=== PATIENT | male | born 1945 | race Caucasian/White ===

== ENCOUNTER 2017-02-10 11:05 | Emergency (ER) | payer OTHER ==
--- NOTE | 2017-02-10 12:58 | DIAGNOSTIC IMAGING REPORT ---
PROCEDURE: US VENOUS - LEFT EXT INDICATION: SWELLING TECHNIQUE: Duplex sonography of the deep venous system in the left lower extremity was performed. Compression and augmentation techniques were used. COMPARISON: None. FINDINGS: Each interrogated segment of deep vein from the common femoral vein into the calf veins demonstrates normal compressibility, augmentation and/or color Doppler flow without filling defect. No evidence of significant soft-tissue edema, soft-tissue mass or cyst. IMPRESSION: 1. No deep venous thrombosis in the left lower extremity.
--- NOTE | 2017-02-10 13:43 | ED CLINICAL REPORT ---
Clinical Report - Physicians/Mid Levels [facility] [address] [place] [address] 02/10/2017 11:06 Patient: XIOMARA MENJIVAR Time Seen: 11:23. Arrived- By private vehicle. Historian- patient. HISTORY OF PRESENT ILLNESS Chief Complaint: LOWER EXTREMITY SWELLING. Severity is described as being moderate. It has become recently worse. The quality is noted to be aching and "pain". This started yesterday and is still present and now worse. It was gradual in onset and has been constant. Symptoms located in the area of the left leg. The patient has had redness and swelling. Patient denies an injury. Similar symptoms previously: None. REVIEW OF SYSTEMS No chills, fever, sweats, cough or difficulty breathing. No palpitations, abdominal pain, constipation, diarrhea or nausea. No vomiting or urinary problems. All systems otherwise negative, except as recorded above. PAST HISTORY ( PCP - KIMBERLY CROCKER). Problems: Diabetes Mellitus. Hypertension. Hypercholesterolemia. Coronary Artery Disease. Additional Surgeries: Angioplasty of blood vessel. Medications: Insulin Regular Human Injection, before meals Taken on sliding scale. Lantus Subcutaneous 50 units q PM, at bedtime. Lisinopril Oral 10 mg, daily. Metformin HCl Oral 1000 mg, 2x a day. Metoprolol 50 MG XL, daily. Pravastatin Sodium Oral 80 mg, at bedtime. Tamsulosin HCl Oral 0.4 mg, at bedtime. Allergies: NKDA. SOCIAL HISTORY Never smoker. No alcohol use or drug use. ADDITIONAL NOTES The nursing notes have been reviewed. PHYSICAL EXAM Vital Signs: 02/10/2017 11:25 BP: 132/69. HR: 75. RR: 20. O2 saturation: 97%. Temp: 98 F. Pain level now: 7/10. Have been reviewed. Appearance: Alert. Eyes: Pupils equal, round and reactive to light. ENT: Pharynx normal. Neck: Normal inspection. Neck supple. CVS: Normal heart rate and rhythm. Heart sounds normal. Respiratory: No respiratory distress. Breath sounds normal. Abdomen: Soft and nontender. No organomegaly. Skin: Skin warm and dry. Normal skin color. Normal skin turgor. Extremities: Swelling, warmth, tenderness and erythema present in the left leg, left ankle and left foot. Mild left-sided calf tenderness. LABS, X-RAYS, AND EKG Lower Extremity Sonography: Negative study. Laboratory Tests: CBC w Diff: (JOSE: 02/10/2017 11:58) ( [facility] 02/10/2017 12:12) Final results Test Result Flag Units (Reference) WHITE BLOOD COUNT 14.2 H K/uL (4.5-11.5) RED BLOOD COUNT 4.46 L M/uL (4.50-5.90) HEMOGLOBIN 12.6 L gm/dL (13.5-17.5) HEMATOCRIT 38.3 L % (41.0-53.0) MEAN CELL VOLUME 86 fL (80-100) MEAN CORPUSCULAR HGB 28 pg (26-34) MEAN CORPUSCULAR HGB CONC 33 g/dL (31-37) RED CELL DISTRIBUTION WIDTH 13.8 % (11.6-14.8) PLATELET COUNT 376 K/uL (150-400) NEUTROPHIL % 76.9 H % (50-75) LYMPH % 12.1 L % (25-40) MONO % 9.3 % (3-14) EOSINOPHIL % 1.4 % (0-4) BASOPHIL % 0.3 % (0-2) PT with INR: (JOSE: 02/10/2017 11:58) ( [facility] [place] 02/10/2017 12:23) Final results Test Result Flag Units (Reference) INR 1.0 (0.8-1.2) Low Intensity Therapy: INR 1.5-2.0 PT range 18.5-23.1Mod.Intensity Therapy: INR 2.0-3.0 PT range 23.1-31.5High Intensity Therapy: INR 2.5-3.5 PT range 27.4-35.5High Intensity Therapy 2: INR 3.0-4.0 PT range 31.5-39.3 APTT 34 SECONDS (24-34) D-DIMER QUANTITATIVE < 0.27 L ug/mLFEU (0.27-0.52) The primary value of this quantitative assay relates toits negative predictive value (i.e. exclusion) of pulmonaryembolism/deep vein thrombosis/DIC.Elevated levels of d-dimer may also occur with:, age, cancer, inflammation, liver disease,post-op, infection, hematoma, coronary disease, peripheralarteriopathy, bleeding disorders and thrombolytic treatment.Results should be correlated with other clinical andradiological data.Testing Methodology: Latex Immunoassay CMP: (JOSE: 02/10/2017 11:58) ( MsgRcvd 02/10/2017 13:02) Final results Test Result Flag Units (Reference) GLUCOSE 74 mg/dL (70-110) BUN 32 H mg/dL (7-18) CREATININE 1.6 H mg/dL (0.6-1.3) Estimated GFR 45.26 mL/min Estimated GFR- 54.85 mL/min Note: Persistent reduction over 3 months in eGFR<60 mL/min/1.73 m2 defines CKD. Patients with eGFR values>=60 mL/min/1.73 m2 may also have CKD if evidence ofpersistent proteinuria. Additional information may be foundat www.kidney.org. SODIUM 140 mmol/L (136-145) POTASSIUM 4.3 mmol/L (3.5-5.1) CHLORIDE 102 mmol/L (98-107) CARBON DIOXIDE 30 mmol/L (21-32) CALCIUM 8.8 mg/dL (8.5-10.1) TOTAL PROTEIN 7.6 g/dL (6.4-8.2) ALBUMIN 3.2 L g/dL (3.3-5.0) BILIRUBIN, TOTAL 0.5 mg/dL (0.0-1.0) ALKALINE PHOSPHATASE 96 U/L (46-116) AST (SGOT) 18 U/L (15-37) ALT (SGPT) 25 U/L (12-78) . PROGRESS AND PROCEDURES Course of Care: Patient is stable. Patient/family counseled. Old medical records reviewed. Disposition: Discharged. Condition: stable. CLINICAL IMPRESSION Cellulitis of the left lower leg. INSTRUCTIONS Elevate affected areas above chest level. Warnings: Further evaluation is necessary. GENERAL WARNINGS: Return or contact your physician immediately if your condition worsens or changes unexpectedly, if not improving as expected, or if other problems arise. Your Current Medications: CONTINUE TAKING THE FOLLOWING MEDICATIONS: Insulin Regular Human Injection : before meals, Sliding scale. Lantus Subcutaneous : 50 units q PM at bedtime. Lisinopril Oral : 10 mg daily. Metformin HCl Oral : 1000 mg 2x a day. Metoprolol* : 50 MG XL daily. Pravastatin Sodium Oral : 80 mg at bedtime. Tamsulosin HCl Oral : 0.4 mg at bedtime. Prescription Medications: Trimethoprim-Sulfamethoxazole DS: take 2 tablets orally every 12 hours for 10 days. No refill. Ultram 50 mg: take 1-2 orally every 6 hours as needed for pain. Dispense fifteen (15). No refills. Substitution is permissible. Follow-up: Follow up with your doctor KIMBERLY CROCKER Monday in three days. Call for an appointment. Understanding of the discharge instructions verbalized by patient and family. (Electronically signed by Thiago Nog MD 02/11/2017 9:44)
--- NOTE | 2017-02-10 13:43 | ED ORDER SUMMARY ---
..... Patient: XIOMARA MENJIVAR OrderSheet [facility] VisitID: [id number] [place] [address] 72y, M Registration Date/Time: 02/10/2017 ORDER SHEET Weight: 120.2 kg (stated) Allergies: NKDA GENERAL ORDERS: US Venous Left (LLE - R/O DVT) Urgent (11:47 02/10/2017 JSimbeck R.N. verbal order read back to Norberto WISDOM) (Ack 11:49 Keely) (13:15 KKnebel R.N.) CBC w Diff Urgent (11:48 02/10/2017 JSimbeck R.N. verbal order read back to Norberto WISDOM) (Ack 11:49 Keely) (12:11 KKnebel R.N.) CMP Urgent (11:48 02/10/2017 JSimbeck R.N. verbal order read back to Norberto WISDOM) (Ack 11:49 Keely) (12:11 KKnebel R.N.) PT with INR Urgent (11:48 02/10/2017 JSimbeck R.N. verbal order read back to Norberto WISDOM) (Ack 11:49 Keely) (12:11 KKnebel R.N.) D-Dimer Urgent (11:48 02/10/2017 JSimbeck R.N. verbal order read back to Norberto WISDOM) (Ack 11:49 Keely) (12:11 KKnebel R.N.) PTT Urgent (11:48 02/10/2017 JSimbeck R.N. verbal order read back to Norberto WISDOM) (Ack 11:49 Keely) (12:11 KKnebel R.N.) Blood Culture (No) (N/A) Urgent (12:55 02/10/2017 Norberto WISDOM) (Ack 12:59 Keely) (13:15 KKnebel R.N.) Lactate, Serum Urgent (12:55 02/10/2017 Norberto WISDOM) (Ack 12:59 Keely) (13:15 KKnebel R.N.) MEDICATION ORDERS: IV FLUIDS: IV Saline Lock (12:03 02/10/2017 Norberto WISDOM) (12:11 Leesa Strauss) ORDER SHEET NOTES: [Electronically signed by Judy Wetzel R.N. (15:53 02/10/2017)] [Electronically signed by Thiago Ngo MD (09:44 02/11/2017)] [Electronically locked/signed by Judy Wetzel R.N. (15:53 02/10/2017)]
--- NOTE | 2017-02-10 13:43 | ED ORDER SUMMARY ---
..... Patient: XIOMARA MENJIVAR OrderSheet [facility] VisitID: [id number] [place] [address] 72y, M Registration Date/Time: 02/10/2017 ORDER SHEET Weight: 120.2 kg (stated) Allergies: NKDA GENERAL ORDERS: US Venous Left (LLE - R/O DVT) Urgent (11:47 02/10/2017 JSimbeck R.N. verbal order read back to Norberto WISDOM) (Ack 11:49 Keely) (13:15 KKnebel R.N.) CBC w Diff Urgent (11:48 02/10/2017 JSimbeck R.N. verbal order read back to Norberto WISDOM) (Ack 11:49 Keely) (12:11 KKnebel R.N.) CMP Urgent (11:48 02/10/2017 JSimbeck R.N. verbal order read back to Norberto WISDOM) (Ack 11:49 Keely) (12:11 KKnebel R.N.) PT with INR Urgent (11:48 02/10/2017 JSimbeck R.N. verbal order read back to Norberto WISDOM) (Ack 11:49 Keely) (12:11 KKnebel R.N.) D-Dimer Urgent (11:48 02/10/2017 JSimbeck R.N. verbal order read back to Norberto WISDOM) (Ack 11:49 Keely) (12:11 KKnebel R.N.) PTT Urgent (11:48 02/10/2017 JSimbeck R.N. verbal order read back to Norberto WISDOM) (Ack 11:49 Keely) (12:11 KKnebel R.N.) Blood Culture (No) (N/A) Urgent (12:55 02/10/2017 Norberto WISDOM) (Ack 12:59 Keely) (13:15 KKnebel R.N.) Lactate, Serum Urgent (12:55 02/10/2017 Norberto WISDOM) (Ack 12:59 Keely) (13:15 KKnebel R.N.) MEDICATION ORDERS: IV FLUIDS: IV Saline Lock (12:03 02/10/2017 Norberto WISDOM) (12:11 Leesa Strauss) ORDER SHEET NOTES: [Electronically signed by Judy Wetzel R.N. (15:53 02/10/2017)] [Electronically signed by Thiago Ngo MD (09:44 02/11/2017)] [Electronically locked/signed by Judy Wetzel R.N. (15:53 02/10/2017)]
--- NOTE | 2017-02-10 13:43 | ED NURSING NOTES ---
Clinical Report - Nurses [facility] [address] [place] [address] 02/10/2017 11:06 Patient: XIOMARA MENJIVAR TRIAGE Triage time 11:10 Feb 10 2017. Acuity: LEVEL 3. Chief Complaint: LEFT LOWER EXTREMITY PAIN and SWELLING. Alert. No acute distress. RENZO COMA SCORE: Renzo Coma Scale: 15- eyes open spontaneously (4); best verbal response- oriented x 4 (5); best motor response- obeys commands (6). --11:31 Judy Wetzel R.N. 11:25 02/10/17. BP: 132/69. HR: 75. RR: 20. O2 saturation: 97%. Temp: 98 F. Pain level now: 02/06. --11:31 Judy Wetzel R.N. Weight: 120.2 kg stated. Height/Length: 68 inches Per Patient. BMI: 40.3. --11:30 Judy Wetzel R.N. Medications Insulin Regular Human Injection, before meals Taken on sliding scale. Lantus Subcutaneous 50 units q PM, at bedtime. Lisinopril Oral 10 mg, daily. Metformin HCl Oral 1000 mg, 2x a day. Metoprolol 50 MG XL, daily. Pravastatin Sodium Oral 80 mg, at bedtime. Tamsulosin HCl Oral 0.4 mg, at bedtime. --11:27 Judy Wetzel R.N. Allergies NKDA. --11:27 Judy Wetzel R.N. History Arrived by private vehicle. Historian: patient. Accompanied by family. This occurred yesterday. It is described as radiating to the left lower extremity and thigh. He has had redness and trouble walking. PAST MEDICAL HX: Tetanus status: up-to-date. Immunizations: up-to-date. SOCIAL HX: Never smoker. No alcohol use or drug use. No infectious disease exposure. SELF HARM ASSESSMENT: A self harm assessment was performed. The patient answered "no" to the question "Do you have thoughts of harming or killing yourself?" and "Have you recently had thoughts about harming or killing others?". FALL RISK ASSESSMENT: Fall risk assessment completed. No fall risk identified. NUTRITIONAL RISK ASSESSMENT: The nutritional risk assessment revealed no deficiencies. FUNCTIONAL ASSESSMENT: Functional assessment: no impairments noted. LEARNING NEEDS ASSESSMENT: The learning needs assessment revealed no barriers. ABUSE ASSESSMENT: Abuse assessment: The patient was asked "Do you feel safe in your home?". SKIN INTEGRITY ASSESSMENT: Skin integrity risk assessment completed. No skin integrity risk identified. --11:31 Judy Wetzel R.N. PROBLEMS: Hypertension. Hypercholesterolemia. Diabetes Mellitus. Coronary Artery Disease. --11:30 Judy Wetzel R.N. ADDITIONAL SURGERIES: Angioplasty of blood vessel. --11:30 Judy Wetzel R.N. Interventions ID band on patient. To room. --11:31 Judy Wetzel R.N. PHYSICAL ASSESSMENT Ambulatory to room. GENERAL / NEURO / PSYCH: Oriented X 4. Alert. Appears in no acute distress. EXTREMITIES: Calf tenderness. Non-pitting edema of the left lower extremity involving the foot, ankle and lower leg. Extremity pulses are within normal limits. Left leg: tenderness, swelling and erythema. SKIN: Skin intact. Skin is warm and dry. --11:32 Judy Wetzel R.N. NURSING PROGRESS NOTES Pulse oximeter and NIBP monitor placed on patient; monitor alarms on. Patient gowned. Patient identifiers checked. Call light placed in reach. Side rails up x 1. Bed placed in lowest position. Brakes of bed on. --11:33 Judy Wetzel R.N. 12:11 02/10/2017 Site #1 started via IV in the right antecubital space with an 20g angiocath, with aseptic technique and good blood return; one attempt. Saline lock flushed with 10 mL saline. --12:11 Judy Wetzel R.N. The patient is calm and resting quietly. Overall patient status is the same- he states feels better. GENERAL / NEURO / PSYCH: The patient reports pain is still present but improving (no pain while laying in bed.). Alert. Oriented X 4. RESPIRATORY: No respiratory distress. SKIN: Skin is warm and dry. --13:43 Judy Wetzel R.N. 13:39 02/10/17. BP: 110/56. HR: 73. RR: 20. O2 saturation: 99%. Pain level now: 0/10. --13:43 Judy Wetzel R.N. DISPOSITION / DISCHARGE 14:02 02/10/2017 Site #1 removed upon discharge. --14:02 Judy Wetzel R.N. Departure time: 14:Feb 10 2017. Condition at departure: improved. No learning barriers present. Discharge instructions provided and reviewed with the patient. Reviewed medication(s) side effects, precautions, dosing and course information. Prescription(s) given to the patient. Reviewed referral to a primary care physician for followup. Patient verbalized understanding. Written instructions provided in Persian. The patient was discharged home and accompanied by spouse. He left the Emergency Department ambulatory and via private vehicle. Spouse driving. FALL RISK ASSESSMENT: Fall risk assessment completed. No fall risk identified. --14:02 Judy Wetzel R.N. 13:39 02/10/17. BP: 110/56. HR: 73. RR: 20. O2 saturation: 99%. Pain level now: 0/10. --14:02 Judy Wetzel R.N. Locked/Released at 02/10/2017 15:53 by Judy Wetzel R.N.
--- NOTE | 2017-02-11 09:44 | ED MED RECONCILIATION SUMMARY ---
Patient: XIOMARA MENJIVAR Medication Reconciliation Report [facility] VisitID: [id number] [address] [place] [address] 72y, M Registration Date/Time: 02/10/2017 Weight: 120.2 kg Height/Length: 68 in. BMI: 40.3 ALLERGIES: NKDA The patient's Home Medications are listed below: CONTINUE TAKING THE FOLLOWING MEDICATIONS: Insulin Regular Human Injection, before meals Lantus Subcutaneous 50 units q PM, at bedtime Lisinopril Oral 10 mg, daily Metformin HCl Oral 1000 mg, 2x a day Metoprolol 50 MG XL, daily Pravastatin Sodium Oral 80 mg, at bedtime Tamsulosin HCl Oral 0.4 mg, at bedtime The source(s) of the original Home Medication information: Not obtained. The following Medications were given to the patient in the Emergency Department: None. The following Medications were prescribed to the patient: Trimethoprim-Sulfamethoxazole DS: take 2 tablets orally every 12 hours for 10 days. No refill. -- Thiago Ngo MD Ultram 50 mg: take 1-2 orally every 6 hours as needed for pain. Dispense fifteen (15). No refills. Substitution is permissible. -- Thiago Ngo MD
--- NOTE | 2017-02-11 09:44 | ED DISCHARGE INSTRUCTIONS ---
Patient: XIOMARA MENJIVAR General Instructions [facility] VisitID: [id number] [place] [address] 72y, M Registration Date/Time: 02/10/2017 Cellulitis of the left lower leg. INSTRUCTIONS Elevate affected areas above chest level. Warnings: Further evaluation is necessary. GENERAL WARNINGS: Return or contact your physician immediately if your condition worsens or changes unexpectedly, if not improving as expected, or if other problems arise. Your Current Medications: CONTINUE TAKING THE FOLLOWING MEDICATIONS: Insulin Regular Human Injection : before meals, Sliding scale. Lantus Subcutaneous : 50 units q PM at bedtime. Lisinopril Oral : 10 mg daily. Metformin HCl Oral : 1000 mg 2x a day. Metoprolol* : 50 MG XL daily. Pravastatin Sodium Oral : 80 mg at bedtime. Tamsulosin HCl Oral : 0.4 mg at bedtime. Prescription Medications: Trimethoprim-Sulfamethoxazole DS: take 2 tablets orally every 12 hours for 10 days. No refill. Ultram 50 mg: take 1-2 orally every 6 hours as needed for pain. Dispense fifteen (15). No refills. Substitution is permissible. Follow-up: Follow up with your doctor KIMBERLY CROCKER Monday in three days. Call for an appointment. Understanding of the discharge instructions verbalized by patient and family. ADDITIONAL INFORMATION Cellulitis You have an infection of the skin known as cellulitis. This usually starts with a scrape, cut, insect bite, blister or other opening in the skin which becomes infected. This is a serious condition. It must be watched closely to be sure the infection is not spreading. With antibiotic treatment, the size of the red area will gradually shrink in size until the skin returns to normal. This will take 7-10 days. The red area should never increase in size once the antibiotic medicine has been started. Occasionally, an infection will be resistant to one antibiotic and another one will have to be used. Home Care: 1) Limit the use of the affected part, since excess movement can cause the infection to spread. 2) If the infection is on your leg, walk as little as possible during the first few days of the treatment. Keep your leg elevated while sitting. This will reduce swelling. 3) Take all of the antibiotic medicine exactly as directed until it is gone. Be careful not to miss any doses, especially during the first seven days. Follow Up with your doctor or this facility as directed. Check the infected area daily for the warning signs listed below. Get Prompt Medical Attention if any of the following occur: -- Spreading area of redness -- Increasing swelling or pain -- Appearance of pus or drainage -- Fever over 100.4 F (38.0 C) oral, or over 101.4 F (38.6 C) rectal, after two days on antibiotics Sulfamethoxazole, Trimethoprim Oral tablet What is this medicine? SULFAMETHOXAZOLE; TRIMETHOPRIM or SMX-TMP (suhl fuh meth OK arnulfo zohl; trye METH oh prim) is a combination of a sulfonamide antibiotic and a second antibiotic, trimethoprim. It is used to treat or prevent certain kinds of bacterial infections. It will not work for colds, flu, or other viral infections. How should I use this medicine? Take this medicine by mouth with a full glass of water. Follow the directions on the prescription label. Take your medicine at regular intervals. Do not take it more often than directed. Do not skip doses or stop your medicine early. Talk to your american sign language interpreter regarding the use of this medicine in children. Special care may be needed. This medicine has been used in children as young as 2 months of age. What side effects may I notice from receiving this medicine? Side effects that you should report to your doctor or health residential care facility manager as soon as possible: allergic reactions like skin rash or hives, swelling of the face, lips, or tongue breathing problems fever or chills, sore throat irregular heartbeat, chest pain joint or muscle pain pain or difficulty passing urine red pinpoint spots on skin redness, blistering, peeling or loosening of the skin, including inside the mouth unusual bleeding or bruising unusually weak or tired yellowing of the eyes or skin Side effects that usually do not require medical attention (report to your doctor or health residential care facility manager if they continue or are bothersome): diarrhea dizziness headache loss of appetite nausea, vomiting nervousness What may interact with this medicine? Do not take this medicine with any of the following medications: aminobenzoate potassium dofetilide metronidazole This medicine may also interact with the following medications: JEANINE inhibitors like benazepril, enalapril, lisinopril, and ramipril cyclosporine digoxin diuretics indomethacin medicines for diabetes methenamine methotrexate phenytoin potassium supplements pyrimethamine sulfinpyrazone tricyclic antidepressants warfarin What if I miss a dose? If you miss a dose, take it as soon as you can. If it is almost time for your next dose, take only that dose. Do not take double or extra doses. Where should I keep my medicine? Keep out of the reach of children. Store at room temperature between 20 to 25 degrees C (68 to 77 degrees F). Protect from light. Throw away any unused medicine after the expiration date. What should I tell my health care provider before I take this medicine? They need to know if you have any of these conditions: anemia asthma being treated with anticonvulsants if you frequently drink alcohol containing drinks kidney disease liver disease low level of folic acid or [id number] dehydrogenase poor nutrition or malabsorption porphyria severe allergies thyroid disorder an unusual or allergic reaction to sulfamethoxazole, trimethoprim, sulfa drugs, other medicines, foods, dyes, or preservatives or trying to get breast-feeding What should I watch for while using this medicine? Tell your doctor or health residential care facility manager if your symptoms do not improve. Drink several glasses of water a day to reduce the risk of kidney problems. Do not treat diarrhea with over the counter products. Contact your doctor if you have diarrhea that lasts more than 2 days or if it is severe and watery. This medicine can make you more sensitive to the sun. Keep out of the sun. If you cannot avoid being in the sun, wear protective clothing and use a sunscreen. Do not use sun lamps or tanning beds/booths. Tramadol Hydrochloride Oral tablet What is this medicine? TRAMADOL (TRA ma dole) is a pain reliever. It is used to treat moderate to severe pain in adults. How should I use this medicine? Take this medicine by mouth with a full glass of water. Follow the directions on the prescription label. If the medicine upsets your stomach, take it with food or milk. Do not take more medicine than you are told to take. Talk to your american sign language interpreter regarding the use of this medicine in children. Special care may be needed. What side effects may I notice from receiving this medicine? Side effects that you should report to your doctor or health residential care facility manager as soon as possible: allergic reactions like skin rash, itching or hives, swelling of the face, lips, or tongue breathing difficulties, wheezing confusion itching light headedness or fainting spells redness, blistering, peeling or loosening of the skin, including inside the mouth seizures Side effects that usually do not require medical attention (report to your doctor or health residential care facility manager if they continue or are bothersome): constipation dizziness drowsiness headache nausea, vomiting What may interact with this medicine? Do not take this medicine with any of the following medications: MAOIs like Carbex, Eldepryl, Marplan, Nardil, and Parnate This medicine may also interact with the following medications: alcohol or medicines that contain alcohol antihistamines benzodiazepines bupropion carbamazepine or oxcarbazepine clozapine cyclobenzaprine digoxin furazolidone linezolid medicines for depression, anxiety, or psychotic disturbances medicines for migraine headache like almotriptan, eletriptan, frovatriptan, naratriptan, rizatriptan, sumatriptan, zolmitriptan medicines for pain like pentazocine, buprenorphine, butorphanol, meperidine, nalbuphine, and propoxyphene medicines for sleep muscle relaxants naltrexone phenobarbital phenothiazines like perphenazine, thioridazine, chlorpromazine, mesoridazine, fluphenazine, prochlorperazine, promazine, and trifluoperazine procarbazine warfarin What if I miss a dose? If you miss a dose, take it as soon as you can. If it is almost time for your next dose, take only that dose. Do not take double or extra doses. Where should I keep my medicine? Keep out of the reach of children. Store at room temperature between 15 and 30 degrees C (59 and 86 degrees F). Keep container tightly closed. Throw away any unused medicine after the expiration date. What should I tell my health care provider before I take this medicine? They need to know if you have any of these conditions: brain tumor depression drug abuse or addiction head injury if you frequently drink alcohol containing drinks kidney disease or trouble passing urine liver disease lung disease, asthma, or breathing problems seizures or epilepsy suicidal thoughts, plans, or attempt; a previous suicide attempt by you or a family member an unusual or allergic reaction to tramadol, codeine, other medicines, foods, dyes, or preservatives or trying to get breast-feeding What should I watch for while using this medicine? Tell your doctor or health residential care facility manager if your pain does not go away, if it gets worse, or if you have new or a different type of pain. You may develop tolerance to the medicine. Tolerance means that you will need a higher dose of the medicine for pain relief. Tolerance is normal and is expected if you take this medicine for a long time. Do not suddenly stop taking your medicine because you may develop a severe reaction. Your body becomes used to the medicine. This does NOT mean you are addicted. Addiction is a behavior related to getting and using a drug for a non-medical reason. If you have pain, you have a medical reason to take pain medicine. Your doctor will tell you how much medicine to take. If your doctor wants you to stop the medicine, the dose will be slowly lowered over time to avoid any side effects. You may get drowsy or dizzy. Do not drive, use machinery, or do anything that needs mental alertness until you know how this medicine affects you. Do not stand or sit up quickly, especially if you are an older patient. This reduces the risk of dizzy or fainting spells. Alcohol can increase or decrease the effects of this medicine. Avoid alcoholic drinks. You may have constipation. Try to have a bowel movement at least every 2 to 3 days. If you do not have a bowel movement for 3 days, call your doctor or health residential care facility manager. Your mouth may get dry. Chewing sugarless gum or sucking hard candy, and drinking plenty of water may help. Contact your doctor if the problem does not go away or is severe. You have been given the following additional information: Cellulitis Sulfamethoxazole, Trimethoprim Oral tablet Tramadol Hydrochloride Oral tablet (Electronically signed by Thiago Ngo MD 02/11/2017 9:44)
--- NOTE | 2017-02-11 09:44 | ED MED RECONCILIATION SUMMARY ---
Patient: XIOMARA MENJIVAR Medication Reconciliation Report [facility] VisitID: [id number] [address] [place] [address] 72y, M Registration Date/Time: 02/10/2017 Weight: 120.2 kg Height/Length: 68 in. BMI: 40.3 ALLERGIES: NKDA The patient's Home Medications are listed below: CONTINUE TAKING THE FOLLOWING MEDICATIONS: Insulin Regular Human Injection, before meals Lantus Subcutaneous 50 units q PM, at bedtime Lisinopril Oral 10 mg, daily Metformin HCl Oral 1000 mg, 2x a day Metoprolol 50 MG XL, daily Pravastatin Sodium Oral 80 mg, at bedtime Tamsulosin HCl Oral 0.4 mg, at bedtime The source(s) of the original Home Medication information: Not obtained. The following Medications were given to the patient in the Emergency Department: None. The following Medications were prescribed to the patient: Trimethoprim-Sulfamethoxazole DS: take 2 tablets orally every 12 hours for 10 days. No refill. -- Thiago Ngo MD Ultram 50 mg: take 1-2 orally every 6 hours as needed for pain. Dispense fifteen (15). No refills. Substitution is permissible. -- Thiago Ngo MD
--- NOTE | 2017-02-11 09:44 | ED MAR SUMMARY ---
..... Medication Administration Record [facility] [address] [place], [place] [id number] Patient: XIOMARA MENJIVAR Visit ID: [id number] 72y, M Weight: 120.2 kg Height/Length: 68 in BMI: 40.3 ALLERGIES: NKDA
--- NOTE | 2017-02-11 09:44 | ED MAR SUMMARY ---
..... Medication Administration Record Located Within [facility] [address] [place], [place] [id number] Patient: XIOMARA MENJIVAR Visit ID: [id number] 72y, M Weight: 120.2 kg Height/Length: 68 in BMI: 40.3 ALLERGIES: NKDA
--- NOTE | 2017-02-11 09:44 | ED DISCHARGE INSTRUCTIONS ---
Patient: XIOMARA MENJIVAR General Instructions [facility] VisitID: [id number] [place] [address] 72y, M Registration Date/Time: 02/10/2017 Cellulitis of the left lower leg. INSTRUCTIONS Elevate affected areas above chest level. Warnings: Further evaluation is necessary. GENERAL WARNINGS: Return or contact your physician immediately if your condition worsens or changes unexpectedly, if not improving as expected, or if other problems arise. Your Current Medications: CONTINUE TAKING THE FOLLOWING MEDICATIONS: Insulin Regular Human Injection : before meals, Sliding scale. Lantus Subcutaneous : 50 units q PM at bedtime. Lisinopril Oral : 10 mg daily. Metformin HCl Oral : 1000 mg 2x a day. Metoprolol* : 50 MG XL daily. Pravastatin Sodium Oral : 80 mg at bedtime. Tamsulosin HCl Oral : 0.4 mg at bedtime. Prescription Medications: Trimethoprim-Sulfamethoxazole DS: take 2 tablets orally every 12 hours for 10 days. No refill. Ultram 50 mg: take 1-2 orally every 6 hours as needed for pain. Dispense fifteen (15). No refills. Substitution is permissible. Follow-up: Follow up with your doctor KIMBERLY CROCKER Monday in three days. Call for an appointment. Understanding of the discharge instructions verbalized by patient and family. ADDITIONAL INFORMATION Cellulitis You have an infection of the skin known as cellulitis. This usually starts with a scrape, cut, insect bite, blister or other opening in the skin which becomes infected. This is a serious condition. It must be watched closely to be sure the infection is not spreading. With antibiotic treatment, the size of the red area will gradually shrink in size until the skin returns to normal. This will take 7-10 days. The red area should never increase in size once the antibiotic medicine has been started. Occasionally, an infection will be resistant to one antibiotic and another one will have to be used. Home Care: 1) Limit the use of the affected part, since excess movement can cause the infection to spread. 2) If the infection is on your leg, walk as little as possible during the first few days of the treatment. Keep your leg elevated while sitting. This will reduce swelling. 3) Take all of the antibiotic medicine exactly as directed until it is gone. Be careful not to miss any doses, especially during the first seven days. Follow Up with your doctor or this facility as directed. Check the infected area daily for the warning signs listed below. Get Prompt Medical Attention if any of the following occur: -- Spreading area of redness -- Increasing swelling or pain -- Appearance of pus or drainage -- Fever over 100.4 F (38.0 C) oral, or over 101.4 F (38.6 C) rectal, after two days on antibiotics Sulfamethoxazole, Trimethoprim Oral tablet What is this medicine? SULFAMETHOXAZOLE; TRIMETHOPRIM or SMX-TMP (suhl fuh meth OK arnulfo zohl; trye METH oh prim) is a combination of a sulfonamide antibiotic and a second antibiotic, trimethoprim. It is used to treat or prevent certain kinds of bacterial infections. It will not work for colds, flu, or other viral infections. How should I use this medicine? Take this medicine by mouth with a full glass of water. Follow the directions on the prescription label. Take your medicine at regular intervals. Do not take it more often than directed. Do not skip doses or stop your medicine early. Talk to your edi developer regarding the use of this medicine in children. Special care may be needed. This medicine has been used in children as young as 2 months of age. What side effects may I notice from receiving this medicine? Side effects that you should report to your doctor or health grounds caretaker as soon as possible: allergic reactions like skin rash or hives, swelling of the face, lips, or tongue breathing problems fever or chills, sore throat irregular heartbeat, chest pain joint or muscle pain pain or difficulty passing urine red pinpoint spots on skin redness, blistering, peeling or loosening of the skin, including inside the mouth unusual bleeding or bruising unusually weak or tired yellowing of the eyes or skin Side effects that usually do not require medical attention (report to your doctor or health grounds caretaker if they continue or are bothersome): diarrhea dizziness headache loss of appetite nausea, vomiting nervousness What may interact with this medicine? Do not take this medicine with any of the following medications: aminobenzoate potassium dofetilide metronidazole This medicine may also interact with the following medications: JEANINE inhibitors like benazepril, enalapril, lisinopril, and ramipril cyclosporine digoxin diuretics indomethacin medicines for diabetes methenamine methotrexate phenytoin potassium supplements pyrimethamine sulfinpyrazone tricyclic antidepressants warfarin What if I miss a dose? If you miss a dose, take it as soon as you can. If it is almost time for your next dose, take only that dose. Do not take double or extra doses. Where should I keep my medicine? Keep out of the reach of children. Store at room temperature between 20 to 25 degrees C (68 to 77 degrees F). Protect from light. Throw away any unused medicine after the expiration date. What should I tell my health care provider before I take this medicine? They need to know if you have any of these conditions: anemia asthma being treated with anticonvulsants if you frequently drink alcohol containing drinks kidney disease liver disease low level of folic acid or [id number] dehydrogenase poor nutrition or malabsorption porphyria severe allergies thyroid disorder an unusual or allergic reaction to sulfamethoxazole, trimethoprim, sulfa drugs, other medicines, foods, dyes, or preservatives or trying to get breast-feeding What should I watch for while using this medicine? Tell your doctor or health grounds caretaker if your symptoms do not improve. Drink several glasses of water a day to reduce the risk of kidney problems. Do not treat diarrhea with over the counter products. Contact your doctor if you have diarrhea that lasts more than 2 days or if it is severe and watery. This medicine can make you more sensitive to the sun. Keep out of the sun. If you cannot avoid being in the sun, wear protective clothing and use a sunscreen. Do not use sun lamps or tanning beds/booths. Tramadol Hydrochloride Oral tablet What is this medicine? TRAMADOL (TRA ma dole) is a pain reliever. It is used to treat moderate to severe pain in adults. How should I use this medicine? Take this medicine by mouth with a full glass of water. Follow the directions on the prescription label. If the medicine upsets your stomach, take it with food or milk. Do not take more medicine than you are told to take. Talk to your edi developer regarding the use of this medicine in children. Special care may be needed. What side effects may I notice from receiving this medicine? Side effects that you should report to your doctor or health grounds caretaker as soon as possible: allergic reactions like skin rash, itching or hives, swelling of the face, lips, or tongue breathing difficulties, wheezing confusion itching light headedness or fainting spells redness, blistering, peeling or loosening of the skin, including inside the mouth seizures Side effects that usually do not require medical attention (report to your doctor or health grounds caretaker if they continue or are bothersome): constipation dizziness drowsiness headache nausea, vomiting What may interact with this medicine? Do not take this medicine with any of the following medications: MAOIs like Carbex, Eldepryl, Marplan, Nardil, and Parnate This medicine may also interact with the following medications: alcohol or medicines that contain alcohol antihistamines benzodiazepines bupropion carbamazepine or oxcarbazepine clozapine cyclobenzaprine digoxin furazolidone linezolid medicines for depression, anxiety, or psychotic disturbances medicines for migraine headache like almotriptan, eletriptan, frovatriptan, naratriptan, rizatriptan, sumatriptan, zolmitriptan medicines for pain like pentazocine, buprenorphine, butorphanol, meperidine, nalbuphine, and propoxyphene medicines for sleep muscle relaxants naltrexone phenobarbital phenothiazines like perphenazine, thioridazine, chlorpromazine, mesoridazine, fluphenazine, prochlorperazine, promazine, and trifluoperazine procarbazine warfarin What if I miss a dose? If you miss a dose, take it as soon as you can. If it is almost time for your next dose, take only that dose. Do not take double or extra doses. Where should I keep my medicine? Keep out of the reach of children. Store at room temperature between 15 and 30 degrees C (59 and 86 degrees F). Keep container tightly closed. Throw away any unused medicine after the expiration date. What should I tell my health care provider before I take this medicine? They need to know if you have any of these conditions: brain tumor depression drug abuse or addiction head injury if you frequently drink alcohol containing drinks kidney disease or trouble passing urine liver disease lung disease, asthma, or breathing problems seizures or epilepsy suicidal thoughts, plans, or attempt; a previous suicide attempt by you or a family member an unusual or allergic reaction to tramadol, codeine, other medicines, foods, dyes, or preservatives or trying to get breast-feeding What should I watch for while using this medicine? Tell your doctor or health grounds caretaker if your pain does not go away, if it gets worse, or if you have new or a different type of pain. You may develop tolerance to the medicine. Tolerance means that you will need a higher dose of the medicine for pain relief. Tolerance is normal and is expected if you take this medicine for a long time. Do not suddenly stop taking your medicine because you may develop a severe reaction. Your body becomes used to the medicine. This does NOT mean you are addicted. Addiction is a behavior related to getting and using a drug for a non-medical reason. If you have pain, you have a medical reason to take pain medicine. Your doctor will tell you how much medicine to take. If your doctor wants you to stop the medicine, the dose will be slowly lowered over time to avoid any side effects. You may get drowsy or dizzy. Do not drive, use machinery, or do anything that needs mental alertness until you know how this medicine affects you. Do not stand or sit up quickly, especially if you are an older patient. This reduces the risk of dizzy or fainting spells. Alcohol can increase or decrease the effects of this medicine. Avoid alcoholic drinks. You may have constipation. Try to have a bowel movement at least every 2 to 3 days. If you do not have a bowel movement for 3 days, call your doctor or health grounds caretaker. Your mouth may get dry. Chewing sugarless gum or sucking hard candy, and drinking plenty of water may help. Contact your doctor if the problem does not go away or is severe. You have been given the following additional information: Cellulitis Sulfamethoxazole, Trimethoprim Oral tablet Tramadol Hydrochloride Oral tablet (Electronically signed by Thiago Ngo MD 02/11/2017 9:44)
[2017-02-13] MEDS ORDERED: AMLODIPINE BES2.5 MG PO (22:56)
[2017-02-13] MEDS ORDERED: ATORVASTATIN CA20 MG PO (22:57)
[2017-02-13] MEDS ORDERED: CINNAMON500 MG PO (22:58)
[2017-02-13] MEDS ORDERED: CYMBALTA60 MG PO (23:00)
[2017-02-13] MEDS ORDERED: IRON325 MG PO (23:00)
[2017-02-13] MEDS ORDERED: FINASTERIDE5 MG PO (23:01)
[2017-02-13] MEDS ORDERED: FLUTICASONE PR50 MCG (23:03)
[2017-02-13] MEDS ORDERED: HYDROCHLOROTHIA25 MG PO (23:03)
[2017-02-13] MEDS ORDERED: JARDIANCE10 MG PO (23:05)
[2017-02-13] MEDS ORDERED: LANTUS SOL100 UNITS/ SC (23:06)
[2017-02-13] MEDS ORDERED: METFORMIN HCL500 M3 PO (23:09)
[2017-02-13] MEDS ORDERED: METOPROLOL SUCC50 MG PO (23:10)
[2017-02-13] MEDS ORDERED: NOVOLOG PE100 UNITS/ SC (23:13)
[2017-02-13] MEDS ORDERED: TAMSULOSIN HCL0.4 MG PO ×2 (23:14→23:15)
[2017-02-13] MEDS ORDERED: TRAMADOL HCL50 MG PO ×2 (23:16→23:21)
[2017-02-13] MEDS ORDERED: VALSARTAN160 MG PO (23:22)
[2017-02-16] MEDS ORDERED: LEVAQUIN250 MG PO (10:26)
== END 2017-02-10 13:46 | disposition home or self-care (01) ==
LOC: ED SRH 11:05
DX: L03.116 Cellulitis of left lower limb (principal); I10 Essential (primary) hypertension; E78.00 Pure hypercholesterolemia, unspecified; E11.9 Type 2 diabetes mellitus without complications; I25.10 Atherosclerotic heart disease of native coronary artery without angina pectoris; Z79.4 Long term (current) use of insulin; Z79.84 Long term (current) use of oral hypoglycemic drugs; Z79.899 Other long term (current) drug therapy